=== PATIENT | male | born 1960 | race Hispanic/Latino ===

== ENCOUNTER → 2019-07-30 | Outpatient (CLI) | payer MEDICARE ==
[~2019-07-30] MED LIST: ASPIR 8181 MG PO; CARVEDILOL3.125 MG PO; FENOFIBRATE145 MG PO; FINASTERIDE5 MG PO; FUROSEMIDE40 MG PO; GABAPENTIN100 MG PO; HYDROCODON-ACE1 EACH; LISINOPRIL5 MG PO; NITROSTAT0.4 MG SL; OMEGA 3 FISH O1 EACH PO; OMEPRAZOLE40 MG PO; PLAVIX75 MG PO; PRAVASTATIN SOD20 MG PO; RENA-VITE TABL0.8 MG PO; RENAPLEX; TAMSULOSIN HCL0.4 MG PO; TIZANIDINE HCL2 M1 PO; TIZANIDINE HCL4 MG PO; TRICOR145 MG PO; ULTRAM50 MG PO
--- NOTE | 2019-07-30 12:34 | Diagnostic Imaging Report ---
EXAMINATION: CHEST 2 VIEWS INDICATION: Shortness of breath COMPARISON: None FINDINGS: LINES/TUBES:None LUNGS:The lungs are moderately inflated. No focal consolidation or dpahne pulmonary edema. PLEURA:No pleural effusion or pneumothorax. MEDIASTINUM:The cardiac silhouette is at the upper limits of normal for size. BONES/SOFT TISSUES:No acute osseous injury. ABDOMEN:No free air under the diaphragm. IMPRESSION: No focal pneumonia or daphne pulmonary edema. Signed by: Lennox Lema MD on 07/30/2019 12:31 PM
--- NOTE | 2019-07-30 12:36 | Diagnostic Imaging Report ---
EXAMINATION: CERVICAL SPINE 4 OR 5 VIEWS INDICATION: Spondylosis COMPARISON: None FINDINGS: No fracture or dislocation. Cervical vertebral body heights are well-maintained. Alignment is anatomic. There are mild multilevel degenerative changes with disc space narrowing and osteophyte formation most notably at C5-6. The prevertebral soft tissues are normal in thickness. IMPRESSION: No acute osseous injury. Multilevel degenerative changes as above. Signed by: Lennox Lema MD on 07/30/2019 12:33 PM
== END ==
LOC: RAD 10:48
PROVIDERS: ATTEND Internal Medicine
DX: M47.812 Spondylosis without myelopathy or radiculopathy, cervical region (principal); R06.02 Shortness of breath
CPT/HCPCS: 71046; 72050

== ENCOUNTER → 2019-08-29 | Outpatient (CLI) | payer MEDICARE ==
--- NOTE | 2019-08-29 13:33 | Diagnostic Imaging Report ---
Exam: Testicular ultrasound. Clinical History: Right testicular swelling Findings: Sonographic evaluation of the testicles. Both testes are normal in echogenicity and size without intratesticular mass. Normal symmetric blood flow with no evidence of testicular torsion. Right: The right testicle measures 4.7 x 2.8 x 3.2 cm. No intratesticular mass. The right epididymis measures 1.5 x 0.8 x 0.8 cm and contains a 5 x 3 x 5 mm spermatocele. Trace right hydrocele. Right varicocele is present. Left: The left testicle measures 4.4 x 2.7 x 3.4 cm. No intratesticular mass. The left epididymis measures 1.0 x 0.7 x 0.8 cm. Nonspecific hypoechoic area on the left testicle measures 8 x 4 x 7 mm and may represent a tiny focal area of tubular ectasia. Impression: No testicular torsion. Trace bilateral hydroceles. Right varicocele. Small right spermatocele. Signed by: Lennox Lema MD on 08/29/2019 1:30 PM
== END ==
LOC: US 08:54
PROVIDERS: ATTEND Internal Medicine
DX: N43.3 Hydrocele, unspecified (principal); N50.89 Other specified disorders of the male genital organs
CPT/HCPCS: 76870; 93976

== ENCOUNTER → 2019-09-11 | Outpatient (CLI) | payer MEDICARE ==
--- NOTE | 2019-09-11 09:26 | Diagnostic Imaging Report ---
EXAMINATION: CHEST 2 VIEWS INDICATION: Flulike symptoms COMPARISON: None FINDINGS: LINES/TUBES:None LUNGS:The lungs are well-inflated. No focal consolidation or pulmonary edema. PLEURA:No pleural effusion or pneumothorax. MEDIASTINUM:The cardiomediastinal silhouette appears normal in size and shape. BONES/SOFT TISSUES:No acute osseous injury. ABDOMEN:No free air under the diaphragm. IMPRESSION: No focal pneumonia or pulmonary edema. Signed by: Lennox Lema MD on 09/11/2019 9:23 AM
== END ==
LOC: RAD 08:43
PROVIDERS: ATTEND Internal Medicine
DX: J11.1 Influenza due to unidentified influenza virus with other respiratory manifestations (principal)
CPT/HCPCS: 71046